=== PATIENT | female | born 1965 | race African-American/Black ===

== ENCOUNTER 2020-02-25 19:44 | Emergency (ER) | payer OTHER ==
--- NOTE | 2020-02-25 19:54 | ER Document Report ---
ED Medical Screen (RME) - General Chief Complaint: Arm Problem Stated Complaint: PICC LINE ISSUE Time Seen by Provider: 02/25/20 19:47 Mode of Arrival: Wheelchair Information source: Patient Notes: 54-year-old female presented to ED for osteomyelitis to the left foot. She states she does have a history of stage III kidney failure heart attack coronary artery disease asthma peripheral vascular disease and diabetes type 2. She states she has been on IV antibiotics for a while for this osteomyelitis. She is here visiting from [place]. She has a PICC line which occluded. She states the hospital in [place] where she goes the declot the PICC line and let her get her antibiotics. She states this PICC line was just placed on Saturday. States she got her antibiotic yesterday and she got part of the antibiotic today and then it clotted off and she has not been able to finish the dose. Patient is alert oriented respirations regular nonlabored speaking in full sentences. I have greeted and performed a rapid initial assessment of this patient. A comprehensive ED assessment and evaluation of the patient, analysis of test results and completion of medical decision making process will be conducted by an additional ED providers. Physical Exam - Vital signs Vitals: Temp Pulse Resp BP Pulse Ox 98.6 F 100 16 134/96 H 100 02/25/20 19:51 02/25/20 19:51 02/25/20 19:51 02/25/20 19:51 02/25/20 19:51 Course - Vital Signs Vital signs: Temp Pulse Resp BP Pulse Ox 98.6 F 100 16 134/96 H 100 02/25/20 19:51 02/25/20 19:51 02/25/20 19:51 02/25/20 19:51 02/25/20 19:51
[2020-02-25 19:56] VITALS: BP 134/96
[2020-02-25 21:02] LABS: ABSOLUTE EOSINOPHILS # (AUTO) 0.1 10^3/uL (0.0-0.6); ABSOLUTE LYMPHOCYTES (AUTO) 2.1 10^3/uL (0.5-4.7); ABSOLUTE MONOCYTES (AUTO) 0.5 10^3/uL (0.1-1.4); ABSOLUTE NEUT (AUTO) 2.8 10^3/uL (1.7-8.2); BASOPHILS % (AUTO) 0.4 % (0-2); EOSINOPHILS % (AUTO) 2.4 % (0-6); HEMATOCRIT 30.2 % (36.0-47.0); HEMOGLOBIN 9.8 g/dL (12.0-15.5); LYMPHOCYTES % (AUTO) 37.5 % (13-45); MEAN CORPUSCULAR HEMOGLOBIN 25.8 pg (27.0-33.4); MEAN CORPUSCULAR HGB CONC 32.5 g/dL (32.0-36.0); MEAN CORPUSCULAR VOLUME 79 fl (80-97); MONOCYTES % (AUTO) 9.4 % (3-13); PLATELET COUNT 349 10^3/uL (150-450); SEGMENTED NEUTROPHILS % (AUTO) 50.3 % (42-78); TOTAL CELLS COUNTED % (AUTO) 100 %; WHITE BLOOD COUNT 5.7 10^3/uL (4.0-10.5)
[2020-02-25 21:07] LABS: APPEARANCE,URINE TURBID; BILIRUBIN,URINE NEGATIVE (NEGATIVE); COLOR,URINE AMBER; GLUCOSE, URINE NEGATIVE (NEGATIVE); KETONES,URINE NEGATIVE (NEGATIVE); LEUKOCYTE ESTERASE,URINE LARGE (NEGATIVE); NITRITE,URINE NEGATIVE (NEGATIVE); PROTEIN,URINE 30 mg/dL (NEGATIVE)
[2020-02-25 21:19] LABS: ALBUMIN 4.4 g/dL (3.5-5.0); ALKALINE PHOSPHATASE 101 U/L (38-126); ANION GAP 14 (5-19); ASPARTATE AMINO TRANSFERASE 35 U/L (14-36); BILIRUBIN,DIRECT 0.4 mg/dL (0.0-0.4); BILIRUBIN,TOTAL 0.4 mg/dL (0.2-1.3); BLOOD UREA NITROGEN 43 mg/dL (7-20); CALCIUM 10.3 mg/dL (8.4-10.2); CARBON DIOXIDE 24 mmol/L (22-30); CHLORIDE 104 mmol/L (98-107); GLUCOSE 141 mg/dL (75-110); POTASSIUM 5.3 mmol/L (3.6-5.0); TOTAL PROTEIN 8.4 g/dL (6.3-8.2)
--- NOTE | 2020-02-26 03:19 | ER Document Report ---
ED General - General Chief Complaint: occluded PICC line Stated Complaint: PICC LINE ISSUE Time Seen by Provider: 02/25/20 19:47 Primary Care Provider: [facility] [Provider Group] - Follow up as needed Mode of Arrival: Wheelchair - [facility] Notes: Patient is a 54 y/o female with a hx of stage III kidney failure, DM and osteomylitis who presents with an occluded PICC line. Patient states she was diagnosed with osteomylitis of her left foot in December 2019. She was been administering IV antibiotics once daily through her PICC line. Patient had a PICC line in the right arm the became occluded about 4 weeks ago. Patient states the line was pulled and a new one was placed in her left arm two days ago. Patient states she was giving herself her dose of antibiotics today when the new PICC line became occluded. She states she takes daptomycin and another antibiotic that she cannot remember once daily. She denies any new symptoms today. She reports left foot pain due to her osteomylitis and abdominal pain and painful urination but states this is chronic due to uterine fibroids. She states her Cr normally is around 1.8. She denies chest pain, shortness of breath, nausea, vomiting and fever. She has a hx of NV, asthma, HLD and right BKA. Patient is visiting from [place] and not returning home until Saturday. Patient states she normally takes plavix but has not taken it in 8 days as she ran out and has not picked up her refill. - Related Data Allergies/Adverse Reactions: morphine Adverse Reaction (Mild, Verified 02/26/20 02:29) Pruritis hydromorphone [From Dilaudid] Adverse Reaction (Verified 02/26/20 02:30) Pruritis Past Medical History - General Information source: Patient - Social History Smoking Status: Former Smoker Chew tobacco use (# tins/day): No Frequency of alcohol use: None Drug Abuse: None Family History: Reviewed & Not Pertinent - Past Medical History Cardiac Medical History: Reports: Hx Heart Attack, Hx Hypercholesterolemia Pulmonary Medical History: Reports: Hx Asthma Endocrine Medical History: Reports: Hx Diabetes Mellitus Type 2 Psychiatric Medical History: Reports: Hx Depression Past Surgical History: Reports: Hx Cardiac Surgery - 2017 Review of Systems - Review of Systems Constitutional: No symptoms reported EENT: No symptoms reported Cardiovascular: No symptoms reported Respiratory: No symptoms reported Gastrointestinal: See HPI Genitourinary: See HPI Female Genitourinary: No symptoms reported Musculoskeletal: No symptoms reported Skin: See HPI Hematologic/Lymphatic: No symptoms reported Neurological/Psychological: No symptoms reported Physical Exam - Vital signs Vitals: Temp Pulse Resp BP Pulse Ox 98.6 F 100 16 134/96 H 100 02/25/20 19:51 02/25/20 19:51 02/25/20 19:51 02/25/20 19:51 02/25/20 19:51 - Notes Notes: PHYSICAL EXAMINATION: VITALS: Vitals reviewed and within normal limits. GENERAL: Well-appearing, well-nourished and in no acute distress. HEAD: Atraumatic, normocephalic. EYES: Pupils equal, round, and reactive to light, extraocular movements intact, sclera anicteric, conjunctiva are normal. ENT: Nares patent. Moist mucous membranes. Oropharynx clear without exudates. NECK: Normal range of motion, supple without lymphadenopathy. LUNGS: Breath sounds clear to auscultation bilaterally and equal. No wheezes, rales, or rhonchi. HEART: Regular, rate, and rhythm without murmurs. ABDOMEN: Soft, nontender, normoactive bowel sounds. No guarding, no rebound. No masses appreciated. EXTREMITIES: Left foot bandaged with 2+ DP and PT pulses. No erythema, edema or tenderness to the left ankle or lower leg. Left foot has no erythema or edema noted. Normal range of motion of the left ankle. No pitting or edema. No cyanosis. Right below the knee amputation. PICC line in place left arm. No surrounding erythema, edema or tenderness. NEUROLOGICAL: No focal neurological deficits. Moves all extremities spontaneously and on command. PSYCH: Normal mood, normal affect. SKIN: Warm, Dry, normal turgor, no rashes or lesions noted. Course - Re-evaluation Re-evalutation: Patient is a 54 y/o female with osteomylitis of her left foot who presents s/p PICC line occlusion. Patient denies any new symptoms. Vital signs are within normal limits. On exam, no concern for cellulitis to the left foot, ankle or left arm surrounding the PICC line. CBC shows a low HGB of 9.8 which patient states is chronic. CMP shows a mildly elevated K of 5.3 and Cr of 2.17 which are consistent with her chronic kidney failure. UA shows large leukocyte esterase, WBC >182 and WBC clumps. Urine culture ordered. I consulted my supervising physician, Dr. Borjas, concerning this patient. He recommends placed a peripheral IV and treating the patient with her usual antibiotics and plavix dose. He also recommended ordering 15g PO Kayexalate for her hyperkalemia. Daptomycin and Ceftriaxone IV ordered. Due to the Holiday and since the patient is visiting from [place], I advised that she return tomorrow to the ED for next dose as she will not be able to have her occluded PICC line addressed until she returns home and needs to receive the appropriate antibiotic treatment as scheduled. Patient understands and is in agreement with the plan. 02/26/20 06:59 Patient re-evaluated after receiving her medications. She reports no complaints at this time. Patient is safe for discharge. She agrees to return to the ED for repeat antibiotics. - Vital Signs Vital signs: Temp Pulse Resp BP Pulse Ox 98.6 F 100 16 134/96 H 100 02/25/20 19:51 02/25/20 19:51 02/25/20 19:51 02/25/20 19:51 02/25/20 19:51 - Laboratory Results Result Diagrams: 02/25/20 20:17 02/25/20 20:17 Laboratory Results Interpreted: 02/25/20 02/25/20 02/25/20 20:17 20:17 20:17 Hgb 9.8 L Hct 30.2 L MCV 79 L MCH 25.8 L RDW 15.0 H Potassium 5.3 H BUN 43 H Creatinine 2.17 H Est GFR ( Amer) 29 L Est GFR (MDRD) Non-Af 24 L Glucose 141 H Calcium 10.3 H Total Protein 8.4 H Urine Protein 30 H Urine Blood SMALL H Urine Urobilinogen 2.0 H Ur Leukocyte Esterase LARGE H Critical Laboratory Results Reviewed: No Critical Results - Radiology Results Critical Radiology Results Reviewed: No Critical Results Discharge - Discharge Clinical Impression: Osteomyelitis Qualifiers: Osteomyelitis type: unspecified type Osteomyelitis location: foot Laterality: left Qualified Code(s): M86.9 - Osteomyelitis, unspecified Occluded PICC line Qualifiers: Encounter type: initial encounter Qualified Code(s): T82.898A - Other specified complication of vascular prosthetic devices, implants and grafts, initial encounter Condition: Stable Disposition: HOME, SELF-CARE Additional Instructions: Return to the emergency department this evening for your next dose of antibiotics. Osteomyelitis You have been diagnosed as having osteomyelitis -- an infection in the bone. This type of infection is much more serious than simple skin infections and must be treated aggressively. Osteomyelitis usually results from cuts or puncture wounds which allow germs to get into the bone. It can also occur s pontaneously from germs in the blood stream. The usual treatment is intravenous antibiotics. With newer antibiotics, this can often be done outside the hospital. Surgery to clean out the infected bone is often necessary. You MUST keep all appointments and get your antibiotics as instructed -- osteomyelitis is a serious problem. You should go to the emergency room or contact your physician if you have a dramatic increase in pain, redness, or swelling, or if you develop shaking chills, fever, or rash. Referrals: [facility] [Provider Group] - Follow up as needed
[2020-02-26] MEDS ORDERED: DAPTOMYCIN INJ 500 MG VIAL IV ONE (03:32)
[2020-02-26] MEDS ORDERED: CEFTRIAXONE 2 GM/D5W RTU 2 GM/50 ML RTUPB IV ONE (03:35)
[2020-02-26] MEDS ORDERED: SODIUM POLYSTYRENE SULFONATE 15 GM/60 ML PO ONE (03:36)
[2020-02-26] MEDS ORDERED: OXYCODONE-ACETAMINOPHEN 5-325 MG TABLET PO ONE (03:36)
[2020-02-26] MEDS ORDERED: CLOPIDOGREL BISULFATE 75 MG TABLET PO ONE (03:37)
[2020-02-26] MEDS ORDERED: DAPTOMYCIN INJ 500 MG VIAL ONE (05:41)
== END 2020-02-26 06:55 | disposition home or self-care (01) ==
LOC: ER 19:44
DX: M86.8X7 Other osteomyelitis, ankle and foot (principal); T82.898A Other specified complication of vascular prosthetic devices, implants and grafts, initial encounter; I25.2 Old myocardial infarction; E78.00 Pure hypercholesterolemia, unspecified; E11.9 Type 2 diabetes mellitus without complications
CPT/HCPCS: 99284; 96375; 96365; 36415; 87040; 87086; 85025; 80053; 81001; J0878; J0696

== ENCOUNTER 2020-02-26 18:49 | Emergency (ER) | payer OTHER ==
[2020-02-26] MEDS ORDERED: DAPTOMYCIN INJ 500 MG VIAL IV ONE (19:42)
--- NOTE | 2020-02-26 19:45 | ER Document Report ---
ED Medical Screen (RME) - General Chief Complaint: Other Stated Complaint: PROBLEM WITH PICC LINE Time Seen by Provider: 02/26/20 19:31 Mode of Arrival: Wheelchair Information source: Patient Notes: HPI; 54-year-old female past medical history significant for kidney failure, diabetes, osteomyelitis seen here last night for a clogged PICC line needing IV antibiotics for her osteomyelitis. Patient was given peripheral IV antibiotics along with Kayexalate for hyperkalemia. She offers no concerns or complaints tonight she is here for repeat labs and repeat IV antibiotics until she can retu rn to [place] to have her PICC line addressed due to the holidays. PE: Alert and oriented x3. Lungs: Clear to auscultation without rales, rhonchi, wheezes. Heart: Regular rate rhythm without murmurs, rubs, gallops. I have greeted and performed a rapid initial assessment of this patient. A comprehensive ED assessment and evaluation of the patient, analysis of test results and completion of the medical decision making process will be conducted by additional ED providers. I have specifically instructed the patient or family members with the patient to immediately return to any nursing staff should anything change in the patient's condition or with their chief complaint. TRAVEL OUTSIDE OF THE [place] IN LAST 30 DAYS: No - Related Data Allergies/Adverse Reactions: morphine Adverse Reaction (Mild, Verified 02/26/20 19:31) Pruritis hydromorphone [From Dilaudid] Adverse Reaction (Verified 02/26/20 19:31) Pruritis Past Medical History - Social History Frequency of alcohol use: None Drug Abuse: None - Past Medical History Cardiac Medical History: Reports: Hx Heart Attack, Hx Hypercholesterolemia Pulmonary Medical History: Reports: Hx Asthma Endocrine Medical History: Reports: Hx Diabetes Mellitus Type 2 Psychiatric Medical History: Reports: Hx Depression Past Surgical History: Reports: Hx Cardiac Surgery - 2017 Physical Exam - Vital signs Vitals: Temp Pulse Resp BP Pulse Ox 97.7 F 96 20 117/66 100 02/26/20 18:52 02/26/20 18:52 02/26/20 18:52 02/26/20 18:52 02/26/20 18:52 Course - Vital Signs Vital signs: Temp Pulse Resp BP Pulse Ox 97.7 F 96 20 117/66 100 02/26/20 18:52 02/26/20 18:52 02/26/20 18:52 02/26/20 18:52 02/26/20 18:52
[2020-02-26] MEDS ORDERED: CEFTRIAXONE 2 GM/D5W RTU 2 GM/50 ML RTUPB IV ONE (20:25)
[2020-02-26] MEDS ORDERED: DAPTOMYCIN INJ 500 MG VIAL ONE (20:59)
[2020-02-26 21:50] LABS: ABSOLUTE EOSINOPHILS # (AUTO) 0.2 10^3/uL (0.0-0.6); ABSOLUTE LYMPHOCYTES (AUTO) 1.7 10^3/uL (0.5-4.7); ABSOLUTE MONOCYTES (AUTO) 0.3 10^3/uL (0.1-1.4); ABSOLUTE NEUT (AUTO) 2.4 10^3/uL (1.7-8.2); BASOPHILS % (AUTO) 0.5 % (0-2); EOSINOPHILS % (AUTO) 4.1 % (0-6); HEMOGLOBIN 9.5 g/dL (12.0-15.5); LYMPHOCYTES % (AUTO) 36.1 % (13-45); MEAN CORPUSCULAR HEMOGLOBIN 25.9 pg (27.0-33.4); MEAN CORPUSCULAR HGB CONC 32.7 g/dL (32.0-36.0); MEAN CORPUSCULAR VOLUME 79 fl (80-97); MONOCYTES % (AUTO) 7.3 % (3-13); PLATELET COUNT 271 10^3/uL (150-450); RED BLOOD COUNT 3.66 10^6/uL (3.72-5.28); RED CELL DISTRIBUTION WIDTH 14.8 % (11.5-14.0); TOTAL CELLS COUNTED % (AUTO) 100 %; WHITE BLOOD COUNT 4.6 10^3/uL (4.0-10.5)
[2020-02-26 22:05] LABS: ALBUMIN 3.9 g/dL (3.5-5.0); ALKALINE PHOSPHATASE 95 U/L (38-126); ANION GAP 8 (5-19); ASPARTATE AMINO TRANSFERASE 36 U/L (14-36); BILIRUBIN,DIRECT 0.2 mg/dL (0.0-0.4); BILIRUBIN,TOTAL 0.2 mg/dL (0.2-1.3); BLOOD UREA NITROGEN 48 mg/dL (7-20); CALCIUM 9.6 mg/dL (8.4-10.2); CARBON DIOXIDE 27 mmol/L (22-30); CHLORIDE 103 mmol/L (98-107); GLUCOSE 185 mg/dL (75-110); POTASSIUM 4.9 mmol/L (3.6-5.0); TOTAL PROTEIN 7.9 g/dL (6.3-8.2)
--- NOTE | 2020-02-26 22:15 | ER Document Report ---
HPI - HPI Patient complains to provider of: iv abx follow up Time Seen by Provider: 02/26/20 19:31 Pain Level: Denies Context: A 54-year-old female returns to emergency room for IV antibiotics second to osteomyelitis of her left foot. Patient had a PICC line put in her left upper arm in [place] and has been doing home IV antibiotics. However the PICC line has clotted. Due to the holiday week she was seen in the emergency room yesterday with abnormal labs. She was given Kayexalate, IV dapsone, IV Rocephin for her osteomyelitis. Patient also had a UTI. Her microbiology results for her UTI are still pending. Patient was told to return to the emergency room for ongoing IV antibiotics. She will be returning to [place] on Saturday and will need IV antibiotics in the ER until she leaves on Saturday. She offers no other concerns or complaints tonight. She denies any fevers. Her past medical history is also significant for stage III kidney disease and diabetes. Associated Symptoms: None Exacerbated by: Denies Relieved by: Denies Similar symptoms previously: Yes - Chronic osteomyelitis of the left foot. Recently seen / treated by doctor: Yes - Seen in the emergency room yesterday. - ROS Systems Reviewed and Negative: Yes All other systems reviewed and negative - CONSTITUTIONAL Constitutional: DENIES: Fever - NEURO Neurology: DENIES: Weakness - REPRODUCTIVE Reproductive: DENIES: : - MUSCULOSKELETAL Musculoskeletal: DENIES: Extremity pain - DERM Skin Color: Erythema Skin Problems: None Past Medical History - General Information source: Patient - Social History Smoking Status: Former Smoker Frequency of alcohol use: None Drug Abuse: None Family History: Reviewed & Not Pertinent - Past Medical History Cardiac Medical History: Reports: Hx Heart Attack, Hx Hypercholesterolemia Pulmonary Medical History: Reports: Hx Asthma Endocrine Medical History: Reports: Hx Diabetes Mellitus Type 2 Psychiatric Medical History: Reports: Hx Depression Past Surgical History: Reports: Hx Cardiac Surgery - 2017 Vertical Provider Document - CONSTITUTIONAL Agree With Documented VS: Yes Exam Limitations: No Limitations General Appearance: No Apparent Distress - INFECTION CONTROL TRAVEL OUTSIDE OF THE [place] IN LAST 30 DAYS: No - HEENT HEENT: Atraumatic - NECK Neck: Normal Inspection, Supple - RESPIRATORY Respiratory: Breath Sounds Normal, No Respiratory Distress - CARDIOVASCULAR Cardiovascular: Regular Rate, Regular Rhythm, No Murmur - MUSCULOSKELETAL/EXTREMETIES Notes: Left foot bandaged. Did not remove bandaging to fully examine foot. However she does have positive pedal pulses. Not warm or tender to palpation. - NEURO Level of Consciousness: Awake, Alert, Appropriate - DERM Integumentary: Warm, Dry, No Rash Course - Re-evaluation Re-evalutation: 02/26/20 22:14 Patient is resting comfortably she is afebrile, she is nontoxic-appearing, her labs are stable compared to her labs from yesterday. Patient does have persistent anemia. She denies any active bleeding. Patient did receive both her IV Rocephin and IV dapsone. Patient is not returning to [place] until Saturday morning. She will return again tomorrow evening for IV antibiotics. Patient was given strict return to the emergency room guidelines. Return for any new or worsening symptoms. All questions were answered. Patient verbalized understanding and agrees with plan of care. 02/26/20 22:22 - Vital Signs Vital signs: Temp Pulse Resp BP Pulse Ox 97.7 F 96 20 117/66 100 02/26/20 18:52 02/26/20 18:52 02/26/20 18:52 02/26/20 18:52 02/26/20 18:52 - Laboratory Results Result Diagrams: 02/26/20 21:35 02/26/20 21:35 Laboratory Results Interpreted: 02/26/20 02/26/20 21:35 21:35 RBC 3.66 L Hgb 9.5 L Hct 29.0 L MCV 79 L MCH 25.9 L RDW 14.8 H BUN 48 H Creatinine 1.84 H Est GFR ( Amer) 35 L Est GFR (MDRD) Non-Af 29 L Glucose 185 H ALT 36 H Critical Laboratory Results Reviewed: No Critical Results - Radiology Results Critical Radiology Results Reviewed: No Critical Results Discharge - Discharge Clinical Impression: Receiving intravenous antibiotic treatment as outpatient Osteomyelitis Qualifiers: Osteomyelitis type: other chronic Osteomyelitis location: foot Laterality: left Qualified Code(s): M86.672 - Other chronic osteomyelitis, left ankle and foot Condition: Stable Disposition: HOME, SELF-CARE Instructions: Antibiotic Therapy ([facility]), Osteomyelitis ([facility]) Additional Instructions: Return to the emergency room in 24 hours for ongoing IV antibiotic therapy. Return to the emergency room for any new or worsening symptoms. Referrals: [facility],NO [Primary Care Provider] - Follow up as needed
[2020-02-26 22:51] VITALS: BP 120/72
== END 2020-02-26 22:40 | disposition home or self-care (01) ==
LOC: ER 18:49
DX: M86.672 Other chronic osteomyelitis, left ankle and foot (principal); Z79.2 Long term (current) use of antibiotics; N39.0 Urinary tract infection, site not specified; D64.9 Anemia, unspecified; E11.9 Type 2 diabetes mellitus without complications; I25.2 Old myocardial infarction; J45.909 Unspecified asthma, uncomplicated; Z87.891 Personal history of nicotine dependence
CPT/HCPCS: 99284; 96365; 96366; 96368; 36415; 85025; 80053; J0878; J0696

== ENCOUNTER 2020-02-27 19:52 | Emergency (ER) | payer OTHER ==
[2020-02-27] MEDS ORDERED: DAPTOMYCIN INJ 500 MG VIAL IV ONE (20:37)
--- NOTE | 2020-02-27 20:38 | ER Document Report ---
ED Medical Screen (RME) - General Chief Complaint: Medication Refill Stated Complaint: NEEDS IV TREATMENT Time Seen by Provider: 02/27/20 20:37 Primary Care Provider: YONAS PAZ [Primary Care Provider] - Follow up as needed Mode of Arrival: Wheelchair Information source: Patient Notes: 54-year-old female presents to the emergency room for day 3 of IV antibiotics for left foot osteomyelitis. Patient has had 2 clogged PICC line and is scheduled to go back to [place] tomorrow to have a new PICC line inserted. Patient states that she was told to stop her Plavix in anticipation of getting a new PICC line. She offers no other concerns or complaints at this time. TRAVEL OUTSIDE OF THE [place] IN LAST 30 DAYS: No - Related Data Allergies/Adverse Reactions: morphine Adverse Reaction (Mild, Verified 02/26/20 19:31) Pruritis hydromorphone [From Dilaudid] Adverse Reaction (Verified 02/26/20 19:31) Pruritis Past Medical History - Past Medical History Cardiac Medical History: Reports: Hx Heart Attack, Hx Hypercholesterolemia Pulmonary Medical History: Reports: Hx Asthma Endocrine Medical History: Reports: Hx Diabetes Mellitus Type 2 Psychiatric Medical History: Reports: Hx Depression Past Surgical History: Reports: Hx Cardiac Surgery - 2017 Doctor's Discharge - Discharge Referrals: YONAS PAZ [Primary Care Provider] - Follow up as needed
[2020-02-27] MEDS ORDERED: CEFTRIAXONE 2 GM/D5W RTU 2 GM/50 ML RTUPB IV ONE (20:53)
[2020-02-27] MEDS ORDERED: CEFTRIAXONE 1 GM/D5W RTU 1 GM/50 ML RTUPB IV ONE (21:00)
[2020-02-27] MEDS ORDERED: DAPTOMYCIN INJ 500 MG VIAL ONE (22:09)
--- NOTE | 2020-02-27 22:48 | ER Document Report ---
HPI - HPI Patient complains to provider of: IV antibiotics Time Seen by Provider: 02/27/20 20:37 Context: 54-year-old female presents to the emergency room for day 3 of IV antibiotics. Patient has been on chronic IV antibiotics for left foot cellulitis. She is here visiting from [place] recently had a new PICC line put in and it has since occluded. She has been able to do her IV antibiotics at home. Unable to do the new PICC line due to the holiday week. Patient also states she was on Plavix but she was told to stop it in anticipation of getting her new PICC line on returning to [place] tomorrow. She offers no other concerns or complaints at this time. - REPRODUCTIVE Reproductive: DENIES: : Past Medical History - General Information source: Patient - Social History Smoking Status: Former Smoker Frequency of alcohol use: None Drug Abuse: None Family History: Reviewed & Not Pertinent - Past Medical History Cardiac Medical History: Reports: Hx Heart Attack, Hx Hypercholesterolemia Pulmonary Medical History: Reports: Hx Asthma Endocrine Medical History: Reports: Hx Diabetes Mellitus Type 2 Psychiatric Medical History: Reports: Hx Depression Past Surgical History: Reports: Hx Cardiac Surgery - 2017 Vertical Provider Document - CONSTITUTIONAL Agree With Documented VS: Yes Exam Limitations: No Limitations General Appearance: No Apparent Distress - INFECTION CONTROL TRAVEL OUTSIDE OF THE [place] IN LAST 30 DAYS: No - HEENT HEENT: Atraumatic, Normocephalic - NECK Neck: Normal Inspection, Supple - RESPIRATORY Respiratory: Breath Sounds Normal, No Respiratory Distress - CARDIOVASCULAR Cardiovascular: Regular Rate, Regular Rhythm - NEURO Level of Consciousness: Awake, Alert, Appropriate Motor/Sensory: No Motor Deficit, No Sensory Deficit Course - Re-evaluation Re-evalutation: 02/27/20 21:[address] Borjas ED attending as he has been involved with the patient's care since her first visit here. Discussed if there was any additional need for labs that she has had them checked twice with improvement of her labs last night. Recommendation was that she will get a new peripheral IV with her IV antibiotics and will be discharged home he is aware that she has stopped her Plavix in anticipation of getting her new PICC line. Will be discharged home after receiving her IV antibiotics. 02/27/20 23:08 Patient received IV antibiotics as prescribed no reactions were noted. Patient will follow-up outpatient on returning home to [place]. Patient was given strict return to the emergency room guidelines. Return for any new or worsening symptoms. All questions were answered. Patient verbalized understanding and agrees with plan of care. - Laboratory Results Critical Laboratory Results Reviewed: No Critical Results - Radiology Results Critical Radiology Results Reviewed: No Critical Results Discharge - Discharge Clinical Impression: Cellulitis of left foot Condition: Stable Disposition: HOME, SELF-CARE Instructions: Osteomyelitis ([facility]) Additional Instructions: Follow-up with your regular providers on returning home to [place]. Return to the emergency room for any new or worsening symptoms. Referrals: [facility],NO [NO LOCAL MD] - Follow up as needed
== END 2020-02-27 23:23 | disposition home or self-care (01) ==
LOC: ER 19:52
DX: L03.116 Cellulitis of left lower limb (principal); E78.00 Pure hypercholesterolemia, unspecified; E11.9 Type 2 diabetes mellitus without complications; I25.2 Old myocardial infarction
CPT/HCPCS: 99284; 96375; 96365; J0878; J0696